=== PATIENT | female | born 1985 | race Caucasian/White ===

== ENCOUNTER 2022-01-09 15:16 | Emergency (ER) | payer MEDICAID, OTHER ==
[~2022-01-09] VITALS: Ht 152.4 cm; Wt 78.9 kg
[2022-01-09 15:37] VITALS: BP 119/62
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
[2022-01-09] MEDS ORDERED: NACL 0.9% 1,000 ML IV ONE (15:55)
--- NOTE | 2022-01-09 16:02 | NUR ---
URINE COLLECTED AND SENT TO LAB. US AT BEDSIDE
[2022-01-09 16:09] LABS: APPEARANCE,URINE CLEAR (CLEAR); BILIRUBIN,URINE NEGATIVE (NEGATIVE); BLOOD, URINE NEGATIVE (NEGATIVE); COLOR,URINE YELLOW (YELLOW); LEUKOCYTE ESTERASE ,URINE NEGATIVE (NEGATIVE); NITRITE, URINE NEGATIVE (NEGATIVE); UGLUCOSE NEGATIVE (NEGATIVE)
[2022-01-09 16:25] LABS: BASOPHILS % (AUTO) 0.3 % (0.0-2.0); EOSINOPHILS # (AUTO) 0.1 K/uL (0-0.4); EOSINOPHILS % (AUTO) 0.6 % (0.0-4.0); HEMATOCRIT 35.4 % (36-48); LYMPHOCYTES # (AUTO) 1.6 K/uL (2.5-16.5); LYMPHOCYTES % (AUTO) 18.4 % (20.5-51.1); MEAN CORPUSCULAR HEMOGLOBIN 32 pg (27-31); MEAN CORPUSCULAR HGB CONC 34 g/dL (33-37); MEAN CORPUSCULAR VOLUME 94.5 fL (80-94); MONOCYTES # (AUTO) 0.6 K/uL (0.8-1.0); NEUTROPHILS # (AUTO) 6.3 K/uL (1.8-7.7); NEUTROPHILS % (AUTO) 73.7 % (42.2-75.2); PLATELET COUNT (AUTO) 243 K/uL (140-450); RED BLOOD CELL COUNT(AUTO) 3.74 MIL/uL (4.20-5.40); RED CELL DISTRIBUTION WIDTH 13.2 % (11.6-13.7); WHITE BLOOD COUNT (AUTO) 8.6 K/uL (4.8-10.8)
[2022-01-09 17:06] LABS: ALBUMIN 2.8 g/dL (3.4-5.0); CREATININE 0.5 mg/dL (0.6-1.3); TOTAL BILIRUBIN 0.2 mg/dL (0.0-1.0)
[2022-01-09 17:15] LABS: ANION GAP 13.5 (8-16); POTASSIUM 3.5 mmol/L (3.5-5.1)
[2022-01-09 18:40] VITALS: BP 126/75
--- NOTE | 2022-01-09 18:40 | NUR ---
Patient discharged with v/s stable. Written and verbal after care instructions given and explained. Patient alert, oriented and verbalized understanding of instructions. Ambulatory with steady gait. All questions addressed prior to discharge. ID band removed. Patient advised to follow up with PMD. Patient educated on indication of medication including possible reaction and side effects. Opportunity to ask questions provided and answered.
== END 2022-01-09 18:40 | disposition home or self-care (01) ==
LOC: MED 15:16
DX: O26.892 Other specified pregnancy related conditions, second trimester (principal); R10.2 Pelvic and perineal pain; Z3A.19 19 weeks gestation of pregnancy
CPT/HCPCS: 36415; 76815; 80053; 81003; 84702; 85025; 86900; 86901; 96360; 99284; J7030; Q0092

== ENCOUNTER 2022-05-25 06:00 | Inpatient (IN) | payer OTHER ==
[~2022-05-25] VITALS: Ht 154.9 cm; Wt 77.1 kg
[2022-05-25] MEDS ORDERED: AMPICILLIN 2,000 MG VIAL ONE (06:18)
[2022-05-25] MEDS ORDERED: LACTATED RINGERS 500 ML IV SCH (06:20)
[2022-05-25] MEDS ORDERED: OXYTOCIN 10 UNITS/ML VIAL IM SCH (06:20)
[2022-05-25] MEDS ORDERED: AMPICILLIN 2,000 MG in NACL 0.9% MINI-BAG PLUS 100 ML IV SCH (06:20)
[2022-05-25] MEDS ORDERED: METHYLERGONOVINE 0.2 MG/ML AMP IM PRN ×2 (06:20→08:40)
[2022-05-25] MEDS ORDERED: LACTATED RINGERS 1,000 ML IV SCH (06:20)
[2022-05-25] MEDS ORDERED: CARBOPROST 250 MCG/ML AMP IM PRN (06:20)
[2022-05-25] MEDS ORDERED: ONDANSETRON 4 MG/2 ML VIAL ONE (06:35)
[2022-05-25] MEDS ORDERED: ONDANSETRON 4 MG/2 ML VIAL IVP PRN (06:35)
[2022-05-25] MEDS ORDERED: MORPHINE SULFATE 10 MG/ML VIAL ONE (06:35)
[2022-05-25] MEDS ORDERED: MORPHINE SULFATE 5 MG/ML VIAL IVP PRN (06:35)
[2022-05-25] MEDS ORDERED: OXYTOCIN 20 UNITS/LR PREMIX 1,000 ML IV ONE (06:43)
[2022-05-25] MEDS ORDERED: OXYTOCIN 20 UNITS in LACTATED RINGERS 1,000 ML IV SCH (06:45)
[2022-05-25 06:55] VITALS: BP 133/83
[2022-05-25] MEDS ORDERED: LIDOCAINE 1% 500 MG/50 ML VIAL ONE (07:19)
[2022-05-25] MEDS ORDERED: METHYLERGONOVINE 0.2 MG TAB PO PRN (08:40)
[2022-05-25] MEDS ORDERED: BENZOCAINE/MENTHOL 20%-0.5% 60 GM CAN TP PRN (08:40)
[2022-05-25] MEDS ORDERED: OXYTOCIN 10 UNITS/ML VIAL IM PRN (08:40)
[2022-05-25] MEDS ORDERED: MEASLES, MUMPS, AND RUBELLA 1 VIAL SQVAC ONE (08:40)
[2022-05-25] MEDS ORDERED: IBUPROFEN 800 MG TAB ONE (08:45)
[2022-05-25] MEDS: IBUPROFEN 800 MG TAB PO PRN ×2 (08:50→15:14)
[2022-05-25] MEDS ORDERED: MEASLES, MUMPS, AND RUBELLA 1 VIAL SQVAC PRN (08:50)
[2022-05-25 09:25] LABS: LYMPHOCYTES # (AUTO) 1.1 K/uL (2.5-16.5); MEAN CORPUSCULAR HEMOGLOBIN 30 pg (27-31); NEUTROPHILS # (AUTO) 11.4 K/uL (1.8-7.7)
[2022-05-25 09:46] LABS: ALBUMIN 2.3 g/dL (3.4-5.0); ANION GAP 12.7 (8-16); CARBON DIOXIDE 23.2 mmol/L (21-32); CREATININE 0.6 mg/dL (0.6-1.3); POTASSIUM 3.9 mmol/L (3.5-5.1); TOTAL BILIRUBIN 0.3 mg/dL (0.0-1.0)
--- NOTE | 2022-05-25 10:36 | NUR ---
PATIENT HAS BEEN SCREENED AND CATEGORIZED LOW NUTRITION RISK. PATIENT WILL BE SEEN WITHIN 7 DAYS OF ADMISSION. 06/01/22 REVIEWED BY MARKIE CAMP[address]
[2022-05-25 12:52] LABS: BILIRUBIN,URINE NEGATIVE (NEGATIVE); BLOOD, URINE 3+ (NEGATIVE); LEUKOCYTE ESTERASE ,URINE TRACE (NEGATIVE); NITRITE, URINE NEGATIVE (NEGATIVE); PH,URINE 6.5 (5.0-9.0); UGLUCOSE NEGATIVE (NEGATIVE)
[2022-05-25 12:53] LABS: APPEARANCE,URINE CLOUDY (CLEAR); COLOR,URINE BLOODY (YELLOW)
[2022-05-25 13:03] LABS: RBC,URINE >100 /HPF (0-5); WBC,URINE 0-5 /HPF (0-5)
[2022-05-25 14:15] LABS: BASOPHILS # (AUTO) 0.1 K/uL (0.00-0.22); BASOPHILS % (AUTO) 0.7 % (0.0-2.0); EOSINOPHILS % (AUTO) 0.3 % (0.0-4.0); HEMATOCRIT 36.1 % (36-48); HEMOGLOBIN 11.7 g/dL (12.0-16.0); LYMPHOCYTES % (AUTO) 8.3 % (20.5-51.1); MEAN CORPUSCULAR HGB CONC 32 g/dL (33-37); MEAN CORPUSCULAR VOLUME 91.5 fL (80-94); MONOCYTES # (AUTO) 0.5 K/uL (0.8-1.0); MONOCYTES % (AUTO) 3.5 % (1.7-9.3); NEUTROPHILS % (AUTO) 87.2 % (42.2-75.2); PLATELET COUNT (AUTO) 188 K/uL (140-450); RED BLOOD CELL COUNT(AUTO) 3.95 MIL/uL (4.20-5.40); RED CELL DISTRIBUTION WIDTH 14.7 % (11.6-13.7)
[2022-05-26] MEDS: IBUPROFEN 800 MG TAB PO PRN ×4 (02:22→19:52)
[2022-05-26 07:21] LABS: HEMATOCRIT 31.1 % (36-48); HEMOGLOBIN 10.2 g/dL (12.0-16.0)
[2022-05-26] MEDS: DOCUSATE SODIUM 100 MG GELCAP PO PRN (13:55)
[2022-05-27] MEDS: bisacodyL 5 MG TABEC PO PRN ×2 (01:03→08:11)
[2022-05-27] MEDS: IBUPROFEN 800 MG TAB PO PRN ×2 (08:12→13:46)
[2022-05-27] MEDS: DOCUSATE SODIUM 100 MG GELCAP PO PRN (08:12)
== END 2022-05-27 18:35 | disposition home or self-care (01) | DRG 560 ==
LOC: MLD 06:00 → MFCC 09:49
PROVIDERS: ADMIT Obstetrics & Gynecology; ATTEND Obstetrics & Gynecology
PROC: 10E0XZZ Delivery of Products of Conception, External Approach (ICD-10-PCS; principal; 2022-05-25)
PROC: 3E033VJ Introduction of Other Hormone into Peripheral Vein, Percutaneous Approach (ICD-10-PCS; 2022-05-25)
PROC: 3E0234Z Introduction of Serum, Toxoid and Vaccine into Muscle, Percutaneous Approach (ICD-10-PCS; 2022-05-25)
DX: O80 Encounter for full-term uncomplicated delivery (principal); Z37.0 Single live birth; Z20.822 Contact with and (suspected) exposure to COVID-19; Z3A.38 38 weeks gestation of pregnancy
CPT/HCPCS: 36415; 59409; 80053; 81001; 85018; 85025; 86592; 86886; 86900; 86901; 87653-90; 90715; J0290; J2001; J2270; J2405; J2590; J7120